=== PATIENT | male | born 1945 | race Caucasian/White ===

== ENCOUNTER → 2018-11-01 | Outpatient (CLI) | payer BC, MEDICARE ==
--- NOTE | 2018-11-01 12:03 | US ---
EXAMINATION TYPE: US duplex aorta DATE OF EXAM: 11/01/2018 COMPARISON: NONE CLINICAL HISTORY: 73-year-old male Z13.9Encounter for screening, unspecified. TECHNIQUE: Multiple sonographic images of the abdominal aorta are obtained. FINDINGS: EXAM MEASUREMENTS: Abdominal Aorta: Proximal: 2.2cm Mid: 1.9cm Distal: 1.6cm Bifurcation: Rt: 1.2cm Lt: 1.3cm IMPRESSION: No sonographic evidence for AAA.
== END | disposition home or self-care (01) ==
LOC: RADUSWWP 09:04
PROVIDERS: ATTEND Family Medicine
DX: Z13.9 Encounter for screening, unspecified (principal)
CPT/HCPCS: 93979

== ENCOUNTER → 2019-08-04 | Day surgery (SDC) | payer MEDICARE ==
[~2019-08-04] MED LIST: ALPRAZolam 0.25 MG TAB PO PRN; ALPRAZolam 0.5 MG TAB PO PRN; ASPIRIN 325 MG TAB PO STA; ATORVASTATIN 80 MG TAB PO STA; IOPAMIDOL-370 125ML BTL INJ ONE; IV FLUID CONTINUATION 100 ML IV ONE; LIDOCAINE 1% INJ 10MG/ML (20 ML MDV) SQ ONE; METOPROLOL SUCCINATE (ER) 25 MG TAB.ER.24H PO SCH; MIDAZOLAM 2 MG/2 ML VIAL IVP ONE; NITROGLYCERIN SL TABS 0.4 MG TAB SUBLINGUAL PRN; RX INFO: IV CONTRAST WAS GIVEN 1 EACH MISC MISCELLANE PRN; SODIUM CHLORIDE 0.9% 1,000 ML in EMPTY BAG 1 BAG IV ONE; fentaNYL (PF) 50 MCG/ML 2 ML AMP IVP ONE
--- NOTE | 2019-08-04 10:54 | ECHOF ---
Referral Reason:pre-op MEASUREMENTS -------- HEIGHT: 177.8 cm WEIGHT: 76.2 kg BP: RVIDd: 4.0 cm (< 3.3) IVSd: 1.3 cm (0.6 - 1.1) LVIDd: 3.6 cm (3.9 - 5.3) LVPWd: 1.3 cm (0.6 - 1.1) IVSs: 1.3 cm LVIDs: 2.6 cm LVPWs: 1.7 cm LAESV Index (A-L): 26.75 ml/m Ao Diam: 3.3 cm (2.0 - 3.7) AV Cusp: 1.5 cm (1.5 - 2.6) LA Diam: 2.6 cm (2.7 - 3.8) MV E Jenaro: 0.90 m/s MV DecT: 145 ms MV A Jenaro: 0.96 m/s MV E/A Ratio: 0.93 RAP: 5.00 mmHg RVSP: 25.79 mmHg FINDINGS -------- Sinus rhythm. This was a technically adequate study. The left ventricular size is normal. There is mild concentric left ventricular hypertrophy. Overa ll left ventricular systolic function is low-normal with, an EF between 50 - 55 %. The diastolic fi lling pattern is normal for the age of the patient 11.91. The right ventricle is mildly enlarged. Normal LA size by volume 22+/-6 ml/m2. The right atrial size is normal. Interatrial and interventricular septum intact. The aortic valve is trileaflet and appears structurally normal. There is mild to moderate aortic va lve sclerosis. Trace amount of aortic regurgitation. There is no evidence of aortic stenosis. Mild mitral annular calcification present. Mild mitral regurgitation is present. Mild tricuspid regurgitation present. There is no evidence of pulmonary hypertension. The right v entricular systolic pressure, as measured by Doppler, is 25.79mmHg. There is no pulmonic regurgitation present. The aortic root size is normal. IVC Not well visulized. There is no pericardial effusion. CONCLUSIONS -------- 1. Sinus rhythm. 2. This was a technically adequate study. 3. The left ventricular size is normal. 4. There is mild concentric left ventricular hypertrophy. 5. Overall left ventricular systolic function is low-normal with, an EF between 50 - 55 %. 6. The diastolic filling pattern is normal for the age of the patient 11.91 7. The right ventricle is mildly enlarged. 8. Normal LA size by volume 22+/-6 ml/m2. 9. The right atrial size is normal. 10. Interatrial and interventricular septum intact. 11. The aortic valve is trileaflet and appears structurally normal. 12. There is mild to moderate aortic valve sclerosis. 13. Trace amount of aortic regurgitation. 14. There is no evidence of aortic stenosis. 15. Mild mitral annular calcification present. 16. Mild mitral regurgitation is present. 17. Mild tricuspid regurgitation present. 18. There is no evidence of pulmonary hypertension. 19. The right ventricular systolic pressure, as measured by Doppler, is 25.79mmHg. 20. There is no pulmonic regurgitation present. 21. The aortic root size is normal. 22. IVC Not well visulized. 23. There is no pericardial effusion. CLINICAL PRODUCT MANAGER: Tianna Hardwick RDCS
[2019-08-04 12:40] VITALS: RESP 16
--- NOTE | 2019-08-04 12:45 | ECHOS ---
STRESS ECHOCARDIOGRAM INDICATIONS: Preoperative cardiac evaluation MEDICATIONS: Cholesterol medications, allopurinol. BASELINE HEART RATE: 63 BASELINE BLOOD PRESSURE: 141/57 MAXIMUM HEART RATE: 193 MAXIMUM BLOOD PRESSURE: 211/107 85% MPHR: 125 100% MPHR: 147 METS: 4.0 MAXIMUM STAGE REACHED: 2 TOTAL EXERCISE TIME: 3:37 CLINICAL INFORMATION: Baseline EKG shows sinus rhythm, Q-waves in the inferior leads, normal axis, normal intervals. Patient exercised on Sean protocol for a total of 3.5 minutes achieving 4 METS 100% of predicted maximal heart rate and at this level of activity became extremely short of breath had frequent ectopy including triplets, a run of SVT and mm ST-segment depression in the inferolateral leads. Baseline echo shows normal left ventricular size, wall motion and systolic function. Postexercise there is hypokinesis involving the apex with dilatation of the cavity. CONCLUSION: 1. Extremely poor exercise tolerance. 2. Cardiac arrhythmia in the form of SVT and complex ventricular ectopy with exercise. 3. Abnormal stress test by EKG criteria. 4. Abnormal stress echo. MMODL / IJN: [id number] /
--- NOTE | 2019-08-04 13:56 | CONS ---
CONSULTATION Mr. Patel is a 73-year-old gentleman who came to the hospital for a stress test. He was to undergo removal of a cyst over his right shoulder by an orthopedic surgeon from [facility] and was sent here for preop cardiac evaluation because of an abnormal EKG. Patient walked on the treadmill for about 3 minutes, became short of breath, had runs of SVT, nonsustained VT and had exercise-induced wall motion abnormality involving the apex. Due to his symptomatology and the EKG changes and ischemia noted on the stress test, I evaluated the patient and advised him to undergo cardiac catheterization. He has a who is disabled and is dependent on him at home. His daughter was with him and the plan is to perform a heart catheterization and if necessary do revascularization so that the patient can proceed with his surgery in the near future. Patient denies chest pain, shortness of breath, but his physical activity is somewhat limited. There is history of dyslipidemia. He is currently on a statin. FAMILY HISTORY: Negative for premature coronary artery disease. SOCIAL HISTORY: Negative for current smoking, EtOH abuse, or drug abuse. REVIEW OF SYSTEMS: HEENT: Unremarkable. CARDIAC: As described above. RESPIRATORY: Negative. GI: Negative. GENITOURINARY: Negative. ALLERGY/IMMUNOLOGY: Negative. SKIN: Negative. MUSCULOSKELETAL: Significant for cyst over right shoulder. PSYCHOSOCIAL: Negative. ENDOCRINE: Negative. DERM: Negative. CONSTITUTIONAL: Negative. ONCOLOGICAL: Negative. Rest of the system review is not relevant. PHYSICAL EXAM: Comfortable at rest. Vital signs are stable. There is no jugular venous distention. Carotid upstroke is normal. There is no bruit. Chest exam reveals good air entry bilaterally. Heart exam reveals first and second heart sounds. No gallop. No murmur. No rub. Abdomen is soft, nontender. Exam of extremities did not reveal any edema. Peripheral pulses are palpable. ASSESSMENT: 1. Abnormal stress test. 2. Dyslipidemia. PLAN: I am concerned, patient has a strongly abnormal stress echo with extremely poor exercise tolerance, cardiac arrhythmia at a very limited activity and in a large area of ischemia in LAD distribution. Due to this, I am advising the patient to undergo cardiac catheterization. He understands risks, benefits and alternatives. I have a CBC from yesterday that shows a hemoglobin of 11.8, platelet count is 300. I spoke to Dr. Zurdo Vance with his primary care physician. Patient had lytes and creatinine done through his office in June and his creatinine was less than 1 at that time. MMODL / IJN: [id number] /
[2019-08-04 16:53] VITALS: BP 155/82; PULSE 62
--- NOTE | 2019-08-05 11:56 | CC ---
CARDIAC CATHETERIZATION REPORT DATE OF PROCEDURE: 08/04/2019. INDICATION: Abnormal stress echo. This is a 72-year-old gentleman that I met in stress testing area when he came for a stress echo for preop cardiac evaluation. The patient exercised on treadmill for 3 minutes and became extremely short of breath, had runs of frequent PVCs, SVT, had EKG changes and wall motion abnormality involving the LAD distribution. Due to this, I advised the patient to undergo cardiac catheterization as I was concerned about significant obstructive coronary artery disease. The patient was explained of risks, benefits and alternatives understood and accepted. PROCEDURE NOTE: After obtaining informed consent, left heart catheterization and coronary angiogram were performed via the right femoral artery using standard Camilla catheters. The patient tolerated the procedure well without any obvious immediate complications. A femoral angiogram was performed and Angio-Seal will be deployed for hemostasis. Patient received moderate conscious sedation. Total sedation time was 16 minutes. FINDINGS: HEMODYNAMICS: Left ventricular end-diastolic pressure is 12-14 mm. There is no significant gradient across the aortic valve. LEFT VENTRICULOGRAM: Ventriculogram is not performed. ANGIOGRAPHIC DATA: LEFT MAIN CORONARY ARTERY: Left main coronary artery appears calcified but is free of significant stenosis. Divides into left anterior descending coronary artery and circumflex coronary artery. LEFT ANTERIOR DESCENDING CORONARY ARTERY: LAD does not reach all the way to the apex of the heart. There is mild is calcification of the left main and the LAD with mild to moderate diffuse disease but no focal hemodynamically significant lesions. CIRCUMFLEX CORONARY ARTERY: Circumflex coronary artery is a nondominant vessel and is free of significant stenosis. RIGHT CORONARY ARTERY: Right coronary artery is a large dominant vessel, appears calcified with a mild atherosclerotic plaque. I do not see any focal hemodynamically significant lesions. CONCLUSION: Mild to moderate nonobstructive coronary artery disease. PLAN: I reviewed angiographic data with the patient. The patient will be treated with aspirin, beta blockers and statins. The stress echo abnormality could be related to the SVT that the patient had. The patient can proceed with surgery on his right shoulder. MMODL / IJN: [id number] /
--- NOTE | 2019-08-05 12:47 | LTR ---
DATE OF SERVICE: 08/05/2019 Dear Zurdo, I performed cardiac catheterization on Emerson Patel. A detailed catheterization note is enclosed for your records. While the patient's stress echo was abnormal, the cardiac catheterization did not reveal significant focal obstructive CAD and patient did not require any angioplasty or stent. His management is going to be in the form of medical therapy and he can safely proceed with the surgery for the cyst on his right shoulder. Thank you for giving me the privilege to participate in the care of this pleasant gentleman. Sincerely, MMJOSEL / IJN: [id number] /
== END | disposition home or self-care (01) ==
LOC: EDSTATUS 08:45 → RADNMMAIN 08:46 → CATHCVL 08:46
PROVIDERS: ATTEND Family Medicine
DX: I49.9 Cardiac arrhythmia, unspecified (principal); I47.1 Supraventricular tachycardia; R94.31 Abnormal electrocardiogram [ECG] [EKG]
CPT/HCPCS: 93351; J2250; J2001; J3010; Q9967; 93306; 93458

== ENCOUNTER → 2020-08-29 | Outpatient (CLI) | payer MEDICARE ==
--- NOTE | 2020-08-29 15:17 | XR ---
"EXAMINATION TYPE: XR chest 2V DATE OF EXAM: 08/29/2020 COMPARISON: NONE HISTORY: COPD and shortness of breath TECHNIQUE: Frontal and lateral views of the chest are obtained. FINDINGS: There is no focal air space opacity, pleural effusion, or pneumothorax seen. The cardiac silhouette size is within normal limits. Interstitium is somewhat increased. Aorta is dense. Right s houlder is high riding, there is thoracic spondylosis. The osseous structures are intact. IMPRESSION: There is underlying interstitial changes within the lungs. Correlate to exclude intersti tial edema. Probable chronic right rotator cuff tear A Yellow level critical message alert has been initiated for Zurdo Vance MD via the [employer] 36 0 | Critical Results System on 08/29/2020 3:15 PM. This message alert has been sent to Zurdo Vance MD via the preferences provided by the clinician for the receipt of Radiology Critical Findings. [place] ssage ID [id number]."
== END | disposition home or self-care (01) ==
LOC: RADXRMAIN 08:52
PROVIDERS: ATTEND Family Medicine
DX: J84.9 Interstitial pulmonary disease, unspecified (principal)
CPT/HCPCS: 71046

== ENCOUNTER → 2020-09-02 | Outpatient (CLI) | payer MEDICARE ==
--- NOTE | 2020-09-02 12:45 | XR ---
EXAMINATION TYPE: XR chest 2V DATE OF EXAM: 09/02/2020 COMPARISON: 08/29/2020 TECHNIQUE: PA and lateral views submitted. HISTORY: Difficulty breathing FINDINGS: The lungs are clear and there is no pneumothorax, pleural effusion, or focal pneumonia. Hypertrophi c and degenerative change spine. Arthropathy of the shoulders. Mild hyperinflation. Interstitium coar sened. IMPRESSION: 1. Correlate for bronchitis or interstitial pneumonitis. Findings appear to be slightly improved from prior exam..
[2020-09-02 14:16] LABS: Basophils # (A) 0.1 k/uL (0-0.2); Basophils % (A) 1 %; Eosinophils # (A) 0.5 k/uL (0-0.7); Eosinophils % (A) 4 %; HCT 35.3 % (39.0-53.0); HGB 11.9 gm/dL (13.0-17.5); Lymphocytes % (A) 14 %; MCHC 33.7 g/dL (31.0-37.0); MCV 97.8 fL (80.0-100.0); Mean Platelet Volume 6.5; Monocytes # (A) 1.2 k/uL (0-1.0); Monocytes % (A) 8 %; Neutrophils % (A) 71 %; Platelet Count 383 k/uL (150-450); RBC 3.61 m/uL (4.30-5.90); RDW 12.3 % (11.5-15.5)
[2020-09-02 14:38] LABS: ALT 17 U/L (4-49); AST 29 U/L (17-59); African American GFR (CKD) >90 (>60 ml/min/1.73 sqM); Albumin 3.4 g/dL (3.5-5.0); Albumin/Globulin Ratio 0.8; Alkaline Phosphatase 90 U/L (38-126); Anion Gap 6 mmol/L; Blood Urea Nitrogen 12 mg/dL (9-20); C Reactive Protein 79.9 mg/L (<10.0); Calcium 9.1 mg/dL (8.4-10.2); Carbon Dioxide 29 mmol/L (22-30); Chloride 101 mmol/L (98-107); Globulin 4.2 g/dL; Glucose 82 mg/dL (74-99); Non-African American GFR(CKD) >90 (>60 ml/min/1.73 sqM); Potassium 3.1 mmol/L (3.5-5.1); Sodium 136 mmol/L (137-145); Total Bilirubin 0.5 mg/dL (0.2-1.3); Total Protein 7.6 g/dL (6.3-8.2)
[2020-09-02 16:29] LABS: Erythrocyte Sedimentation Rate 100 mm/hr (0-15)
== END | disposition home or self-care (01) ==
LOC: LABWHC1 12:13
PROVIDERS: ATTEND Nurse Practitioner
DX: R06.09 Other forms of dyspnea (principal)
CPT/HCPCS: 36415; 71046; 80053; 83880; 84145; 85025; 85652; 86140

== ENCOUNTER → 2020-09-03 | Outpatient (CLI) | payer MEDICARE | END | disposition home or self-care (01) | LOC: LABWHC1 12:56 | PROVIDERS: ATTEND Nurse Practitioner | DX: Z20.828 Contact with and (suspected) exposure to other viral communicable diseases (principal) | CPT/HCPCS: U0003; C9803 ==

== ENCOUNTER 2020-09-04 10:38 | Emergency (ER) | payer MEDICARE ==
--- NOTE | 2020-09-04 11:09 | ED ---
General Adult HPI - General Chief complaint: Shortness of Breath Stated complaint: SOB Time Seen by Provider: 09/04/20 10:50 Source: patient Mode of arrival: ambulatory Limitations: no limitations - History of Present Illness Initial comments: Dictation was produced using [employer] dictation software. please excuse any grammatical, word or spelling errors. This patient was cared for during a federal and state declared state of emergency secondary to Covid 19 Chief Complaint: 75-year-old male with no lung or cardiac comorbidities presents with dyspnea failed outpatient treatment. History of Present Illness: His 75-year-old male. He was sent in by the nurse practitioner from his PCPs office for failed outpatient care. He has been having continuous exertional dyspnea since mid-June. I did receive a call from nurse practitioner, Johnny Medrano stating that he was sending his patient over here. There is concern of COPD. Daughter is at bedside reports that patient does not have a formal diagnosis of COPD. Patient does however have an abnormal chest x-ray suggestive of COPD. Patient had blood work drawn at PCPs office. The patient had elevated CRP, ESR and slight elevation of leukocytosis. Patient has been having cough, poor appetite. Patient does not feel like his symptoms severely worsen over the last couple days. One year ago patient had a cardiac stress tests. He also had a cardiac cath which did not reveal any coronary artery disease according to daughter. He denies any symptoms get worse when he lies flat. The ROS documented in this emergency department record has been reviewed and confirmed by me. Those systems with pertinent positive or negative responses have been documented in the HPI. All other systems are other negative and/or noncontributory. PHYSICAL EXAM: General Impression: Alert and oriented x3, not in acute distress HEENT: Normocephalic atraumatic, extra-ocular movements intact, pupils equal and reactive to light bilaterally, mucous membranes moist. Cardiovascular: Heart regular rate and rhythm Chest: Able to complete full sentences, no retractions, no tachypnea, diffuse lung crackles on auscultation Abdomen: abdomen soft, non-tender, non-distended, no organomegaly Musculoskeletal: Pulses present and equal in all extremities, no peripheral edema Motor: no focal deficits noted Neurological: CN II-XII grossly intact, no focal motor or sensory deficits noted Skin: Intact with no visualized rashes Psych: Normal affect and mood ED course: 75-year-old male presents to the emergency department after being sent by nurse practitioner from PCPs office for chronic shortness of breath vital signs upon arrival are within acceptable limits. Patient does not appear dyspneic at bedside. He does not have any pitting edema. Chart review was performed. In July 2019 patient had a cardiac cath which showed mild to moderate nonobstructive coronary artery disease Laboratory evaluation obtained. Mild leukocytosis of 13.4, hemoglobin stable 0.3, coag panel is negative. Potassium is 3.0. Rest of labs unremarkable. Chest x-ray shows diffuse bilateral reticular nodular edema and or atypical infiltrates. Patient has normal brain natruretic peptide. This appears to be not significantly different results were discussed with patient and patient's daughter. Patient will be prescribed azithromycin pack and given referral to pulmonology. EKG interpretation: Ventricular rate 70, normal sinus rhythm,. Interval 180, QRS 90, QTc 451. No [place] prolongation, no QTC prolongation, no ST or T-wave changes noted. Overall, this EKG is unremarkable - Related Data Home Medications Medication Instructions Recorded Confirmed ALPRAZolam [Xanax] 0.5 mg PO BID PRN 09/04/20 09/04/20 ALPRAZolam [Xanax] 0.5 mg PO HS 09/04/20 09/04/20 Allopurinol [Zyloprim] 300 mg PO HS 09/04/20 09/04/20 Amoxic-Pot Clav 875-125Mg 1 tab PO Q12HR 09/04/20 09/04/20 [Augmentin 875-125] Ascorbic Acid [Vitamin C] 250 mg PO BID 09/04/20 09/04/20 Cholecalciferol [Vitamin D3 (25 2,000 unit PO DAILY 09/04/20 09/04/20 Mcg = 1000 Iu)] Cranberry Fruit Concentrate [Azo 250 mg PO DAILY 09/04/20 09/04/20 Cranberry] Fish Oil/Dha/Epa [Fish Oil 1,200 1 cap PO DAILY 09/04/20 09/04/20 mg Fish Oil] lisinopriL [Zestril] 20 mg PO DAILY 09/04/20 09/04/20 traZODone HCL [Desyrel] 50 mg PO HS 09/04/20 09/04/20 Previous Rx's Medication Instructions Recorded Aspirin 81 mg PO DAILY chew 08/04/19 Metoprolol Succinate (ER) [Toprol 25 mg PO DAILY #90 tab.er.24h 08/04/19 XL] Allergies Allergy/AdvReac Type Severity Reaction Status Date / Time No Known Allergies Allergy Verified 09/04/20 12:03 Review of Systems ROS Statement: Those systems with pertinent positive or pertinent negative responses have been documented in the HPI. ROS Other: All systems not noted in ROS Statement are negative. Past Medical History Past Medical History: Hypertension Additional Past Medical History / Comment(s): gout, copd per xray Additional Past Surgical History / Comment(s): cyst Past Psychological History: No Psychological Hx Reported Smoking Status: Former smoker Past Alcohol Use History: Occasional Past Drug Use History: None Reported General Exam Limitations: no limitations Course Vital Signs 09/04/20 09/04/20 09/04/20 10:40 11:30 11:40 Temperature 98.6 F Pulse Rate 79 67 65 Respiratory 18 18 17 Rate Blood Pressure 148/89 147/87 147/87 O2 Sat by Pulse 97 96 96 Oximetry 09/04/20 09/04/20 09/04/20 11:50 12:00 12:10 Temperature Pulse Rate 70 72 70 Respiratory 24 20 17 Rate Blood Pressure 147/87 147/87 138/83 O2 Sat by Pulse 94 L 94 L 93 L Oximetry 09/04/20 09/04/20 12:20 12:30 Temperature Pulse Rate 71 69 Respiratory 16 16 Rate Blood Pressure 138/83 138/83 O2 Sat by Pulse 93 L 93 L Oximetry Medical Decision Making - Lab Data Result diagrams: 09/04/20 11:22 09/04/20 11:22 Lab Results 09/04/20 09/04/20 09/04/20 Range/Units 11:22 11:22 11:22 WBC 13.4 H (3.8-10.6) k/uL RBC 3.74 L (4.30-5.90) m/uL Hgb 12.3 L (13.0-17.5) gm/dL Hct 36.2 L (39.0-53.0) % MCV 96.6 (80.0-100.0) fL MCH 32.9 (25.0-35.0) pg MCHC 34.1 (31.0-37.0) g/dL RDW 12.2 (11.5-15.5) % Plt Count 419 (150-450) k/uL MPV 6.5 Neutrophils % 76 % Lymphocytes % 13 % Monocytes % 7 % Eosinophils % 2 % Basophils % 1 % Neutrophils # 10.2 H (1.3-7.7) k/uL Lymphocytes # 1.8 (1.0-4.8) k/uL Monocytes # 0.9 (0-1.0) k/uL Eosinophils # 0.3 (0-0.7) k/uL Basophils # 0.1 (0-0.2) k/uL PT 12.0 (9.0-12.0) sec INR 1.2 H (<1.2) APTT 25.5 (22.0-30.0) sec Sodium 135 L (137-145) mmol/L Potassium 3.0 L (3.5-5.1) mmol/L Chloride 101 (98-107) mmol/L Carbon Dioxide 28 (22-30) mmol/L Anion Gap 6 mmol/L BUN 8 L (9-20) mg/dL Creatinine 0.66 (0.66-1.25) mg/dL Est GFR (CKD-EPI)AfAm >90 (>60 ml/min/1.73 sqM) Est GFR (CKD-EPI)NonAf >90 (>60 ml/min/1.73 sqM) Glucose 89 (74-99) mg/dL Plasma Lactic Acid Zeb (0.7-2.0) mmol/L Calcium 8.9 (8.4-10.2) mg/dL Total Bilirubin 0.8 (0.2-1.3) mg/dL AST 30 (17-59) U/L ALT 18 (4-49) U/L Alkaline Phosphatase 89 (38-126) U/L Troponin I (0.000-0.034) ng/mL NT-Pro-B Natriuret Pep pg/mL Total Protein 7.6 (6.3-8.2) g/dL Albumin 3.4 L (3.5-5.0) g/dL 09/04/20 09/04/20 09/04/20 Range/Units 11:22 11:22 11:22 WBC (3.8-10.6) k/uL RBC (4.30-5.90) m/uL Hgb (13.0-17.5) gm/dL Hct (39.0-53.0) % MCV (80.0-100.0) fL MCH (25.0-35.0) pg MCHC (31.0-37.0) g/dL RDW (11.5-15.5) % Plt Count (150-450) k/uL MPV Neutrophils % % Lymphocytes % % Monocytes % % Eosinophils % % Basophils % % Neutrophils # (1.3-7.7) k/uL Lymphocytes # (1.0-4.8) k/uL Monocytes # (0-1.0) k/uL Eosinophils # (0-0.7) k/uL Basophils # (0-0.2) k/uL PT (9.0-12.0) sec INR (<1.2) APTT (22.0-30.0) sec Sodium (137-145) mmol/L Potassium (3.5-5.1) mmol/L Chloride (98-107) mmol/L Carbon Dioxide (22-30) mmol/L Anion Gap mmol/L BUN (9-20) mg/dL Creatinine (0.66-1.25) mg/dL Est GFR (CKD-EPI)AfAm (>60 ml/min/1.73 sqM) Est GFR (CKD-EPI)NonAf (>60 ml/min/1.73 sqM) Glucose (74-99) mg/dL Plasma Lactic Acid Zeb 1.3 (0.7-2.0) mmol/L Calcium (8.4-10.2) mg/dL Total Bilirubin (0.2-1.3) mg/dL AST (17-59) U/L ALT (4-49) U/L Alkaline Phosphatase (38-126) U/L Troponin I 0.014 (0.000-0.034) ng/mL NT-Pro-B Natriuret Pep 400 pg/mL Total Protein (6.3-8.2) g/dL Albumin (3.5-5.0) g/dL Disposition Clinical Impression: Dyspnea Disposition: HOME SELF-CARE Condition: Good Instructions (If sedation given, give patient instructions): Dyspnea (ED) Is patient prescribed a controlled substance at d/c from ED?: No Referrals: Afia Lopez MD [STAFF PHYSICIAN] - 1-2 days Time of Disposition: 12:46
[2020-09-04 11:38] LABS: Basophils # (A) 0.1 k/uL (0-0.2); Basophils % (A) 1 %; Eosinophils # (A) 0.3 k/uL (0-0.7); Eosinophils % (A) 2 %; HCT 36.2 % (39.0-53.0); HGB 12.3 gm/dL (13.0-17.5); Lymphocytes # (A) 1.8 k/uL (1.0-4.8); Lymphocytes % (A) 13 %; MCH 32.9 pg (25.0-35.0); MCHC 34.1 g/dL (31.0-37.0); MCV 96.6 fL (80.0-100.0); Mean Platelet Volume 6.5; Monocytes # (A) 0.9 k/uL (0-1.0); Monocytes % (A) 7 %; Neutrophils # (A) 10.2 k/uL (1.3-7.7); Neutrophils % (A) 76 %; Platelet Count 419 k/uL (150-450); RBC 3.74 m/uL (4.30-5.90); RDW 12.2 % (11.5-15.5); WBC 13.4 k/uL (3.8-10.6)
--- NOTE | 2020-09-04 11:43 | XR ---
EXAMINATION TYPE: XR chest 2V DATE OF EXAM: 09/04/2020 COMPARISON: Chest x-ray 2 days ago and 6 days ago. HISTORY: Difficulty breathing. Abnormal physical exam. TECHNIQUE: Frontal and lateral views of the chest are obtained. FINDINGS: Faint reticular nodular increased opacities bilaterally remain present. No pleural effusio n or pneumothorax is seen bilaterally. The cardiac silhouette size remains within normal limits with atherosclerotic change in the aortic knob. Multilevel spurring in thoracic spine is redemonstrated. IMPRESSION: Diffuse bilateral reticulonodular edema and/or atypical infiltrates remain present. No s ignificant change or progression from recent prior studies.
[2020-09-04 11:44] LABS: ALT 18 U/L (4-49); AST 30 U/L (17-59); African American GFR (CKD) >90 (>60 ml/min/1.73 sqM); Albumin 3.4 g/dL (3.5-5.0); Alkaline Phosphatase 89 U/L (38-126); Anion Gap 6 mmol/L; Blood Urea Nitrogen 8 mg/dL (9-20); Calcium 8.9 mg/dL (8.4-10.2); Carbon Dioxide 28 mmol/L (22-30); Chloride 101 mmol/L (98-107); Glucose 89 mg/dL (74-99); INR 1.2 (<1.2); Non-African American GFR(CKD) >90 (>60 ml/min/1.73 sqM); Partial Thromboplastin Time 25.5 sec (22.0-30.0); Sodium 135 mmol/L (137-145); Total Bilirubin 0.8 mg/dL (0.2-1.3); Total Protein 7.6 g/dL (6.3-8.2)
[2020-09-04 12:32] VITALS: BP 138/83; PULSE 69
[2020-09-04 12:33] VITALS: RESP 16
--- NOTE | 2020-09-04 12:47 | ED ---
Medical Decision Making - Lab Data Result diagrams: 09/04/20 11:22 09/04/20 11:22 Lab Results 09/04/20 09/04/20 09/04/20 Range/Units 11:22 11:22 11:22 WBC 13.4 H (3.8-10.6) k/uL RBC 3.74 L (4.30-5.90) m/uL Hgb 12.3 L (13.0-17.5) gm/dL Hct 36.2 L (39.0-53.0) % MCV 96.6 (80.0-100.0) fL MCH 32.9 (25.0-35.0) pg MCHC 34.1 (31.0-37.0) g/dL RDW 12.2 (11.5-15.5) % Plt Count 419 (150-450) k/uL MPV 6.5 Neutrophils % 76 % Lymphocytes % 13 % Monocytes % 7 % Eosinophils % 2 % Basophils % 1 % Neutrophils # 10.2 H (1.3-7.7) k/uL Lymphocytes # 1.8 (1.0-4.8) k/uL Monocytes # 0.9 (0-1.0) k/uL Eosinophils # 0.3 (0-0.7) k/uL Basophils # 0.1 (0-0.2) k/uL PT 12.0 (9.0-12.0) sec INR 1.2 H (<1.2) APTT 25.5 (22.0-30.0) sec Sodium 135 L (137-145) mmol/L Potassium 3.0 L (3.5-5.1) mmol/L Chloride 101 (98-107) mmol/L Carbon Dioxide 28 (22-30) mmol/L Anion Gap 6 mmol/L BUN 8 L (9-20) mg/dL Creatinine 0.66 (0.66-1.25) mg/dL Est GFR (CKD-EPI)AfAm >90 (>60 ml/min/1.73 sqM) Est GFR (CKD-EPI)NonAf >90 (>60 ml/min/1.73 sqM) Glucose 89 (74-99) mg/dL Plasma Lactic Acid Zeb (0.7-2.0) mmol/L Calcium 8.9 (8.4-10.2) mg/dL Total Bilirubin 0.8 (0.2-1.3) mg/dL AST 30 (17-59) U/L ALT 18 (4-49) U/L Alkaline Phosphatase 89 (38-126) U/L Troponin I (0.000-0.034) ng/mL NT-Pro-B Natriuret Pep pg/mL Total Protein 7.6 (6.3-8.2) g/dL Albumin 3.4 L (3.5-5.0) g/dL 09/04/20 09/04/20 09/04/20 Range/Units 11:22 11:22 11:22 WBC (3.8-10.6) k/uL RBC (4.30-5.90) m/uL Hgb (13.0-17.5) gm/dL Hct (39.0-53.0) % MCV (80.0-100.0) fL MCH (25.0-35.0) pg MCHC (31.0-37.0) g/dL RDW (11.5-15.5) % Plt Count (150-450) k/uL MPV Neutrophils % % Lymphocytes % % Monocytes % % Eosinophils % % Basophils % % Neutrophils # (1.3-7.7) k/uL Lymphocytes # (1.0-4.8) k/uL Monocytes # (0-1.0) k/uL Eosinophils # (0-0.7) k/uL Basophils # (0-0.2) k/uL PT (9.0-12.0) sec INR (<1.2) APTT (22.0-30.0) sec Sodium (137-145) mmol/L Potassium (3.5-5.1) mmol/L Chloride (98-107) mmol/L Carbon Dioxide (22-30) mmol/L Anion Gap mmol/L BUN (9-20) mg/dL Creatinine (0.66-1.25) mg/dL Est GFR (CKD-EPI)AfAm (>60 ml/min/1.73 sqM) Est GFR (CKD-EPI)NonAf (>60 ml/min/1.73 sqM) Glucose (74-99) mg/dL Plasma Lactic Acid Zeb 1.3 (0.7-2.0) mmol/L Calcium (8.4-10.2) mg/dL Total Bilirubin (0.2-1.3) mg/dL AST (17-59) U/L ALT (4-49) U/L Alkaline Phosphatase (38-126) U/L Troponin I 0.014 (0.000-0.034) ng/mL NT-Pro-B Natriuret Pep 400 pg/mL Total Protein (6.3-8.2) g/dL Albumin (3.5-5.0) g/dL Disposition Clinical Impression: Dyspnea Disposition: HOME SELF-CARE Condition: Good Instructions (If sedation given, give patient instructions): Dyspnea (ED) Prescriptions: Azithromycin [Zithromax Z-pack (6 tabs)] 0 mg PO DIRECTED 5 Days #6 tab Is patient prescribed a controlled substance at d/c from ED?: No If prescribed controlled substance>3 days was MAPS reviewed?: Prescribed <3 Days Referrals: Afia Lopez MD [STAFF PHYSICIAN] - 1-2 days Time of Disposition: 12:47
[2020-09-04 13:04] VITALS: TEMP 98.2
== END 2020-09-04 13:03 | disposition home or self-care (01) ==
LOC: EC 10:38
DX: R06.00 Dyspnea, unspecified (principal); I10 Essential (primary) hypertension; M10.9 Gout, unspecified; I25.10 Atherosclerotic heart disease of native coronary artery without angina pectoris; D72.829 Elevated white blood cell count, unspecified; Z79.899 Other long term (current) drug therapy; Z87.891 Personal history of nicotine dependence
CPT/HCPCS: 36415; 71046; 80053; 83605; 83880; 84484; 85025; 85610; 85730; 93005; 99285

== ENCOUNTER → 2020-10-18 | Outpatient (CLI) | payer MEDICARE ==
--- NOTE | 2020-10-18 11:09 | XR ---
EXAMINATION TYPE: XR chest 2V DATE OF EXAM: 10/18/2020 COMPARISON: 09/04/2020 TECHNIQUE: PA and lateral views submitted. HISTORY: Cough FINDINGS: The lungs are clear and there is no pneumothorax, pleural effusion, or focal pneumonia. Hypertrophi c change of the spine. Heart size normal. Curvature of the spine. No overt failure. Arthropathy of th e shoulders. IMPRESSION: 1. No acute process.
== END | disposition home or self-care (01) ==
LOC: RADXRMAIN 10:35
PROVIDERS: ATTEND Family Medicine
DX: J18.9 Pneumonia, unspecified organism (principal)
CPT/HCPCS: 71046

== ENCOUNTER → 2020-11-20 | Outpatient (CLI) | payer MEDICARE | END | disposition home or self-care (01) | LOC: LABWHC1 10:48 | PROVIDERS: ATTEND Family Medicine | DX: Z20.822 Contact with and (suspected) exposure to COVID-19 (principal) | CPT/HCPCS: U0003; C9803 ==

== ENCOUNTER → 2023-01-12 | Outpatient (CLI) | payer MEDICARE ==
--- NOTE | 2023-01-12 18:40 | US ---
EXAMINATION TYPE: US carotid duplex BILAT DATE OF EXAM: 01/12/2023 COMPARISON: NONE CLINICAL INDICATION: Male, 77 years old with history of G45.9 TRANSIENT CEREBRAL ISCHEMIC ATTACK, UNS PECIF; TIA TECHNIQUE: Carotid duplex ultrasound examination. Indirect Doppler criteria was utilized. FINDINGS: EXAM MEASUREMENTS: RIGHT: Peak Systolic Velocity (PSV) cm/sec ----- Right CCA: 136 ----- Right ICA: 111 ----- Right ECA: 107 ICA/CCA ratio: 0.81 RIGHT: End Diastole cm/sec ----- Right CCA: 26.3 ----- Right ICA: 21.8 ----- Right ECA: 8 LEFT: Peak Systolic Velocity (PSV) cm/sec ----- Left CCA: 129 ----- Left ICA: 72.6 ----- Left ECA: 95.8 ICA/CCA ratio: 0.6 LEFT: End Diastole cm/sec ----- Left CCA: 26.4 ----- Left ICA: 14.7 ----- Left ECA: 8.51 VERTEBRALS (direction of flow): Right Vertebral: Antegrade Left Vertebral: Antegrade Rhythm: Normal [employer] OFF SHIFT NOTES: No significant stenosis seen Grayscale images: Mild atelectatic change at both bifurcations. IMPRESSION: No hemodynamically significant internal carotid artery stenosis on either side. Criteria for Assigning % of Stenosis / Diameter reduction (Estimation based on the indirect measurements of the internal carotid artery velocities (ICA PSV). 1. Normal (no stenosis)=ICA PSV < 125 cm/s: ratio < 2.0: ICA EDV<40 cm/s. 2. Less than 50% stenosis=ICA PSV < 125 cm/s: ratio < 2.0: ICA EDV<40 cm/s. 3. 50 to 69% stenosis=ICA PSV of 125 to 230 cm/s: ration 2.0 ? 4.0: ICA EDV 40-100 cm/s. 4. Greater than 70% stenosis to near occlusion= ICA PSV > 230 cm/s: ratio > 4.0: ICA EDV > 100 cm/s. 5. Near occlusion= ICA PSV velocities may be low or undetectable: variable ratio and ICA EDV. 6. Total occlusion=unable to detect flow.
== END | disposition home or self-care (01) ==
LOC: RADUSWWP 12:58
PROVIDERS: ATTEND Family Medicine
DX: G45.9 Transient cerebral ischemic attack, unspecified (principal)
CPT/HCPCS: 93880

== ENCOUNTER → 2023-01-12 | Outpatient (CLI) | payer MEDICARE ==
[2023-01-12 16:25] LABS: Basophils # (A) 0.12 X 10*3/uL (0.00-0.10); Basophils % (A) 1.3 %; Eosinophils # (A) 0.32 X 10*3/uL (0.04-0.35); Eosinophils % (A) 3.6 %; HCT 44.3 % (39.6-50.0); HGB 14.8 g/dL (13.0-17.0); Immature Grans, Automated 0.6 %; Lymphocytes # (A) 2.79 X 10*3/uL (0.90-5.00); Lymphocytes % (A) 31.3 %; MCH 32.5 pg (27.0-32.0); MCHC 33.4 g/dL (32.0-37.0); MCV 97.1 fL (80.0-97.0); Mean Platelet Volume 9.6 fL (9.5-12.2); NRBC Per 100 WBC 0 /100 WBCS (0.0-0.0); Neutrophils # (A) 4.82 X 10*3/uL (1.80-7.70); Neutrophils % (A) 54.2 %; Platelet Count 276 X 10*3/uL (140-440); RBC 4.56 X 10*6/uL (4.40-5.60); RDW 12.9 % (11.5-14.5)
[2023-01-12 16:44] LABS: ALT 33 U/L (10-49); AST 37 U/L (14-35); African American GFR (CKD) 91.9 (60.0-200.0); Albumin 4.2 g/dL (3.8-4.9); Albumin/Globulin Ratio 1.26 (1.60-3.17); Alkaline Phosphatase 95 U/L (41-126); Blood Urea Nitrogen 11.2 mg/dL (9.0-27.0); Calcium 9.7 mg/dL (8.7-10.3); Carbon Dioxide 23.7 mmol/L (20.0-27.5); Chloride 105 mmol/L (96-109); Chol/HDL Ratio 4.59 Ratio; Globulin 3.4 g/dL (1.6-3.3); Glucose 83 mg/dL (70-110); LDL Cholesterol,Calculated 152.1 mg/dL (0.0-131.0); Non-African American GFR(CKD) 79.3 (60.0-200.0); Potassium 4.3 mmol/L (3.5-5.5); Sodium 141 mmol/L (135-145); Total Protein 7.6 g/dL (6.2-8.2); Uric Acid 4.1 mg/dL (3.7-8.7)
== END | disposition home or self-care (01) ==
LOC: LABWHC1 09:35
PROVIDERS: ATTEND Family Medicine
DX: Z12.5 Encounter for screening for malignant neoplasm of prostate (principal); I10 Essential (primary) hypertension; M10.9 Gout, unspecified; E78.5 Hyperlipidemia, unspecified; G45.9 Transient cerebral ischemic attack, unspecified
CPT/HCPCS: 36415; 80053; 80061; 84153; 84443; 84550; 85025

== ENCOUNTER → 2023-02-04 | Outpatient (CLI) | payer MEDICARE ==
--- NOTE | 2023-02-05 12:49 | CA ---
Transthoracic Echo Report Name: Emerson Patel Age: 77 Gender: M : 1945 Exam Date: 02/04/2023 15:01 Exam Location: [facility] Ht (in): 70 Wt (lb): 205 Ordering Physician: Zurdo Vance MD Attending/Referring Phys: [id number], [facility] Department Chair Natalie Wasserman, [facility] Procedure CPT: Indications: R03.1 Cardiac Hx: Technical Quality: Fair Contrast 1: Total Dose (mL): Contrast 2: Total Dose (mL): MEASUREMENTS (Male / Female) Normal Values 2D ECHO LV Diastolic Diameter PLAX 4.5 cm 4.2 - 5.9 / 3.9 - 5.3 cm LV Systolic Diameter PLAX 3.9 cm IVS Diastolic Thickness 1.1 cm 0.6 - 1.0 / 0.6 - 0.9 cm LVPW Diastolic Thickness 0.9 cm 0.6 - 1.0 / 0.6 - 0.9 cm LV Relative Wall Thickness 0.4 RV Internal Dim ED PLAX 3.6 cm LA Systolic Diameter LX 3.9 cm 3.0 - 4.0 / 2.7 - 3.8 cm LV Diastolic Volume MOD BP 108.0 cm??? 67 - 155 / 56 - 104 cm??? LV Systolic Volume MOD BP 49.8 cm??? - 58 / 19 - 49 cm??? LV Ejection Fraction MOD BP 53.9 % >= 55 % LV Cardiac Index MOD BP 1720.1 cm???/min???m??? LV Diastolic Volume MOD 4C 105.3 cm??? LV Systolic Volume MOD 4C 42.9 cm??? LV Ejection Fraction MOD 4C 59.2 % LV Cardiac Index MOD 4C 1842.0 cm???/min???m??? LV Diastolic Length 4C 9.1 cm LV Systolic Length 4C 7.9 cm LV Diastolic Volume MOD 2C 108.4 cm??? LV Systolic Volume MOD 2C 52.2 cm??? LV Ejection Fraction MOD 2C 51.9 % LV Cardiac Index MOD 2C 1662.2 cm???/min???m??? LV Diastolic Length 2C 8.5 cm LV Systolic Length 2C 7.0 cm LA Volume 54.8 cm??? 18 - 58 / 22 - 52 cm??? M-MODE Aortic Root Diameter MM 3.4 cm MV E Point Septal Separation 1.2 cm AV Cusp Separation MM 1.0 cm DOPPLER AV Peak Velocity 237.7 cm/s AV Peak Gradient 22.6 mmHg AV Mean Velocity 154.1 cm/s AV Mean Gradient 11.0 mmHg AV Velocity Time Integral 52.2 cm LVOT Peak Velocity 90.6 cm/s LVOT Peak Gradient 3.3 mmHg MV Area PHT 2.4 cm??? Mitral E Point Velocity 74.4 cm/s Mitral A Point Velocity 97.0 cm/s Mitral E to A Ratio 0.8 MV Deceleration Time 316.2 ms MV E' Velocity 7.4 cm/s Mitral E to MV E' Ratio 10.1 FINDINGS Left Ventricle Left ventricular ejection fraction is estimated at50-55 %. Left ventricular cavity size normal. Mildly decreased left ventricular ejection fraction. Right Ventricle Mild right ventricular dilatation. Unable to estimate the right ventricular systolic pressure. Right Atrium Normal right atrial size. Left Atrium Normal left atrial size. Mitral Valve Structurally normal mitral valve. Trace to mild mitral regurgitation. Aortic Valve Moderate aortic valve sclerosis. Mild aortic stenosis with a peak gradient of 23 mmHg and a mean gradient of 11 mmHg. Tricuspid Valve Structurally normal tricuspid valve. No tricuspid regurgitation. Pulmonic Valve Structurally normal pulmonic valve. Trace pulmonic regurgitation. Pericardium No pericardial effusion. Normal pericardium. Aorta Normal size aortic root and proximal ascending aorta. CONCLUSIONS Low-normal left ventricle systolic function with EF at 50% Aortic sclerosis with mild aortic stenosis Previewed by: Dr. Paco Melendez MD (Electronically Signed) Final Date: 05 February 2023 12:48
== END | disposition home or self-care (01) ==
LOC: RADECHMAIN 14:54
PROVIDERS: ATTEND Family Medicine
DX: I35.0 Nonrheumatic aortic (valve) stenosis (principal); R03.1 Nonspecific low blood-pressure reading; I10 Essential (primary) hypertension
CPT/HCPCS: 93306

== ENCOUNTER → 2023-11-09 | Outpatient (CLI) | payer MEDICARE ==
[2023-11-09 16:32] LABS: HCT 43.9 % (39.6-50.0); HGB 14.6 g/dL (13.0-17.0); MCHC 33.3 g/dL (32.0-37.0); MCV 99.3 FL (80.0-97.0); NRBC Per 100 WBC 0 X 10*3/uL (0.00-0.01); Platelet Count 316 X 10*3/uL (140-440); RBC 4.42 X 10*6/uL (4.40-5.60); RDW 12.8 % (11.5-14.5)
[2023-11-09 16:33] LABS: Basophils % (A) 0.7 %; Eosinophils # (A) 0.33 X 10*3/uL (0.04-0.35); Eosinophils % (A) 2.3 %; Lymphocytes % (A) 20.8 %; Monocytes # (A) 1.23 X 10*3/uL (0.20-1.00); Monocytes % (A) 8.5 %; Neutrophils # (A) 9.65 X 10*3/uL (1.80-7.70); Neutrophils % (A) 67.1 %
[2023-11-09 16:40] LABS: ALT 24 U/L (10-49); AST 33 U/L (14-35); Albumin 4.1 g/dL (3.8-4.9); Albumin/Globulin Ratio 1.02 Ratio (1.60-3.17); Alkaline Phosphatase 110 U/L (41-126); Blood Urea Nitrogen 18.4 mg/dL (9.0-27.0); Calcium 10.2 mg/dL (8.7-10.3); Carbon Dioxide 24.1 mmol/L (21.6-31.8); Chloride 98 mmol/L (96-109); Glucose 92 mg/dL (70-110); LDL Cholesterol,Calculated 114.5 mg/dL (0.0-131.0); Potassium 4.2 mmol/L (3.5-5.5); Sodium 135 mmol/L (135-145); Total Bilirubin 0.5 mg/dL (0.3-1.2); Total Protein 8.1 g/dL (6.2-8.2); VLDL Calculation 19.04 mg/dL (5.00-40.00)
== END | disposition home or self-care (01) ==
LOC: LABWHC1 09:48
PROVIDERS: ATTEND Family Medicine
DX: E78.5 Hyperlipidemia, unspecified (principal)
CPT/HCPCS: 36415; 80053; 80061; 83036; 84443; 85025

== ENCOUNTER → 2023-11-17 | Outpatient (CLI) | payer MEDICARE ==
[2023-11-17 17:03] LABS: HCT 48.9 % (39.6-50.0); HGB 16.3 g/dL (13.0-17.0); MCH 32.9 pg (27.0-32.0); MCHC 33.3 g/dL (32.0-37.0); MCV 98.6 FL (80.0-97.0); NRBC Per 100 WBC 0 X 10*3/uL (0.00-0.01); Platelet Count 331 X 10*3/uL (140-440); RBC 4.96 X 10*6/uL (4.40-5.60); RDW 12.8 % (11.5-14.5); WBC 21.52 X 10*3/uL (4.50-10.00)
[2023-11-17 17:30] LABS: ALT 51 U/L (10-49); AST 49 U/L (14-35); Albumin 4.4 g/dL (3.8-4.9); Albumin/Globulin Ratio 1.07 Ratio (1.60-3.17); Alkaline Phosphatase 96 U/L (41-126); Blood Urea Nitrogen 28.2 mg/dL (9.0-27.0); Calcium 10.1 mg/dL (8.7-10.3); Carbon Dioxide 19.9 mmol/L (21.6-31.8); Chloride 103 mmol/L (96-109); Globulin 4.1 g/dL (1.6-3.3); Glucose 87 mg/dL (70-110); Potassium 4.3 mmol/L (3.5-5.5); Sodium 136 mmol/L (135-145); Total Bilirubin 0.8 mg/dL (0.3-1.2); Total Protein 8.5 g/dL (6.2-8.2)
[2023-11-17 17:34] LABS: Basophils # (A) 0.14 X 10*3/uL (0.00-0.10); Basophils % (A) 0.7 %; Eosinophils # (A) 0.11 X 10*3/uL (0.04-0.35); Eosinophils % (A) 0.5 %; Lymphocytes # (A) 3.34 X 10*3/uL (0.90-5.00); Lymphocytes % (A) 15.5 %; Monocytes # (A) 1.92 X 10*3/uL (0.20-1.00); Monocytes % (A) 8.9 %; Neutrophils # (A) 15.78 X 10*3/uL (1.80-7.70); Neutrophils % (A) 73.3 %; RBC Morphology Normal (Normal)
== END | disposition home or self-care (01) ==
LOC: LABWHC1 10:01
PROVIDERS: ATTEND Family Medicine
DX: N17.9 Acute kidney failure, unspecified (principal); D72.829 Elevated white blood cell count, unspecified
CPT/HCPCS: 36415; 80053; 85025

== ENCOUNTER → 2023-12-02 | Outpatient (CLI) | payer MEDICARE ==
[2023-12-02 14:50] LABS: ALT 34 U/L (10-49); AST 37 U/L (14-35); Albumin 4.1 g/dL (3.8-4.9); Albumin/Globulin Ratio 1.21 Ratio (1.60-3.17); Alkaline Phosphatase 99 U/L (41-126); BUN/Creat Ratio 14.69 Ratio (12.00-20.00); Blood Urea Nitrogen 19.1 mg/dL (9.0-27.0); Calcium 9.9 mg/dL (8.7-10.3); Carbon Dioxide 21.8 mmol/L (21.6-31.8); Chloride 102 mmol/L (96-109); Globulin 3.4 g/dL (1.6-3.3); Glucose 94 mg/dL (70-110); Potassium 4.5 mmol/L (3.5-5.5); Sodium 136 mmol/L (135-145); Total Bilirubin 0.5 mg/dL (0.3-1.2); Total Protein 7.5 g/dL (6.2-8.2)
[2023-12-02 16:12] LABS: Basophils # (A) 0.07 X 10*3/uL (0.00-0.10); Basophils % (A) 0.7 %; Eosinophils # (A) 0.21 X 10*3/uL (0.04-0.35); Eosinophils % (A) 2.1 %; HCT 42.8 % (39.6-50.0); HGB 14.1 g/dL (13.0-17.0); Lymphocytes # (A) 2.87 X 10*3/uL (0.90-5.00); Lymphocytes % (A) 28.8 %; MCH 32.2 pg (27.0-32.0); MCHC 32.9 g/dL (32.0-37.0); MCV 97.7 FL (80.0-97.0); Mean Platelet Volume 9.3 FL (9.5-12.2); Monocytes # (A) 0.95 X 10*3/uL (0.20-1.00); Monocytes % (A) 9.5 %; NRBC Per 100 WBC 0 X 10*3/uL (0.00-0.01); Neutrophils # (A) 5.83 X 10*3/uL (1.80-7.70); Neutrophils % (A) 58.5 %; Platelet Count 324 X 10*3/uL (140-440); RBC 4.38 X 10*6/uL (4.40-5.60); WBC 9.97 X 10*3/uL (4.50-10.00)
== END | disposition home or self-care (01) ==
LOC: LABWHC1 10:13
PROVIDERS: ATTEND Family Medicine
DX: N17.9 Acute kidney failure, unspecified (principal); D72.829 Elevated white blood cell count, unspecified
CPT/HCPCS: 36415; 80053; 85025

== ENCOUNTER → 2024-02-14 | Outpatient (CLI) | payer MEDICARE | END | disposition home or self-care (01) | LOC: LABWHC1 10:24 | PROVIDERS: ATTEND Nurse Practitioner Family | DX: M10.9 Gout, unspecified (principal) | CPT/HCPCS: 36415; 84550 ==

== ENCOUNTER → 2024-02-15 | Outpatient (CLI) | payer MEDICARE ==
[2024-02-15 14:22] LABS: Basophils # (A) 0.09 X 10*3/uL (0.00-0.10); Basophils % (A) 0.8 %; Eosinophils # (A) 0.26 X 10*3/uL (0.04-0.35); Eosinophils % (A) 2.4 %; HCT 37.7 % (39.6-50.0); HGB 12.2 g/dL (13.0-17.0); Lymphocytes # (A) 3.67 X 10*3/uL (0.90-5.00); Lymphocytes % (A) 34.1 %; MCH 32.5 pg (27.0-32.0); MCHC 32.4 g/dL (32.0-37.0); MCV 100.5 FL (80.0-97.0); Mean Platelet Volume 9.5 FL (9.5-12.2); Monocytes # (A) 0.93 X 10*3/uL (0.20-1.00); Monocytes % (A) 8.6 %; NRBC Per 100 WBC 0 X 10*3/uL (0.00-0.01); Neutrophils # (A) 5.79 X 10*3/uL (1.80-7.70); Neutrophils % (A) 53.8 %; Platelet Count 273 X 10*3/uL (140-440); RBC 3.75 X 10*6/uL (4.40-5.60); RDW 13.2 % (11.5-14.5); WBC 10.77 X 10*3/uL (4.50-10.00)
[2024-02-15 14:46] LABS: ALT 19 U/L (10-49); AST 28 U/L (14-35); Albumin 4.5 g/dL (3.8-4.9); Alkaline Phosphatase 92 U/L (41-126); BUN/Creat Ratio 13.18 Ratio (12.00-20.00); Blood Urea Nitrogen 14.5 mg/dL (9.0-27.0); Calcium 10.1 mg/dL (8.7-10.3); Carbon Dioxide 21.5 mmol/L (21.6-31.8); Chloride 104 mmol/L (96-109); Chol/HDL Ratio 4.72 Ratio; Glucose 95 mg/dL (70-110); LDL Cholesterol,Calculated 155.9 mg/dL (0.0-131.0); Sodium 141 mmol/L (135-145); Total Bilirubin 0.7 mg/dL (0.3-1.2); Total Protein 7.5 g/dL (6.2-8.2)
== END | disposition home or self-care (01) ==
LOC: LABWHC1 09:44
PROVIDERS: ATTEND Family Medicine
DX: E78.5 Hyperlipidemia, unspecified (principal)
CPT/HCPCS: 36415; 80053; 80061; 84443; 85025

== ENCOUNTER → 2024-05-09 | Outpatient (CLI) | payer MEDICARE ==
[2024-05-09 15:06] LABS: Basophils % (A) 0.9 %; Eosinophils % (A) 2.7 %; HCT 42.9 % (39.6-50.0); HGB 14.4 g/dL (13.0-17.0); Lymphocytes % (A) 25.8 %; MCH 33.6 pg (27.0-32.0); MCHC 33.6 g/dL (32.0-37.0); MCV 100.2 FL (80.0-97.0); Mean Platelet Volume 9.2 FL (9.5-12.2); Monocytes % (A) 8.4 %; NRBC Per 100 WBC 0 X 10*3/uL (0.00-0.01); Neutrophils # (A) 6.71 X 10*3/uL (1.80-7.70); Neutrophils % (A) 61.9 %; Platelet Count 260 X 10*3/uL (140-440); RBC 4.28 X 10*6/uL (4.40-5.60); RDW 12.8 % (11.5-14.5); WBC 10.84 X 10*3/uL (4.50-10.00)
[2024-05-09 15:07] LABS: Eosinophils # (A) 0.29 X 10*3/uL (0.04-0.35); Monocytes # (A) 0.91 X 10*3/uL (0.20-1.00)
[2024-05-09 16:05] LABS: % Iron Saturation 25.08 (15.00-50.00); ALT 24 U/L (10-49); AST 27 U/L (14-35); Albumin 4.3 g/dL (3.8-4.9); Albumin/Globulin Ratio 1.48 Ratio (1.60-3.17); Alkaline Phosphatase 103 U/L (41-126); Blood Urea Nitrogen 12.6 mg/dL (9.0-27.0); Calcium 9.8 mg/dL (8.7-10.3); Chloride 105 mmol/L (96-109); Ferritin 81.5 ng/mL (22.0-322.0); Globulin 2.9 g/dL (1.6-3.3); Glucose 88 mg/dL (70-110); Iron 78 UG/DL (65-175); Potassium 4.1 mmol/L (3.5-5.5); Sodium 141 mmol/L (135-145); Total Bilirubin 0.4 mg/dL (0.3-1.2); Total Iron Binding Capacity 311 UG/DL (228-460); Total Protein 7.2 g/dL (6.2-8.2)
== END | disposition home or self-care (01) ==
LOC: LABWHC1 10:33
PROVIDERS: ATTEND Family Medicine
DX: D64.9 Anemia, unspecified (principal); Z12.5 Encounter for screening for malignant neoplasm of prostate
CPT/HCPCS: 36415; 80053; 82728; 83540; 83550; 85025

== ENCOUNTER → 2024-11-10 | Outpatient (CLI) | payer MEDICARE ==
[2024-11-10 14:50] LABS: HGB 15.5 g/dL (13.0-17.0); MCH 33.6 pg (27.0-32.0); MCHC 33.7 g/dL (32.0-37.0); MCV 99.8 FL (80.0-97.0); Mean Platelet Volume 9.4 FL (9.5-12.2); NRBC Per 100 WBC 0 X 10*3/uL (0.00-0.01); Platelet Count 335 X 10*3/uL (140-440); RBC 4.61 X 10*6/uL (4.40-5.60); RDW 12.5 % (11.5-14.5); WBC 10.99 X 10*3/uL (4.50-10.00)
[2024-11-10 14:51] LABS: Basophils % (A) 0.9 %; Eosinophils # (A) 0.38 X 10*3/uL (0.04-0.35); Eosinophils % (A) 3.5 %; Lymphocytes # (A) 2.53 X 10*3/uL (0.90-5.00); Monocytes # (A) 0.92 X 10*3/uL (0.20-1.00); Monocytes % (A) 8.4 %; Neutrophils % (A) 63.7 %
[2024-11-10 15:15] LABS: ALT 22 U/L (10-49); AST 35 U/L (14-35); Albumin/Globulin Ratio 1.05 Ratio (1.60-3.17); Alkaline Phosphatase 98 U/L (41-126); BUN/Creat Ratio 11.92 Ratio (12.00-20.00); Blood Urea Nitrogen 14.3 mg/dL (9.0-27.0); Carbon Dioxide 19.8 mmol/L (21.6-31.8); Chloride 106 mmol/L (96-109); Chol/HDL Ratio 3.99 Ratio; Globulin 3.8 g/dL (1.6-3.3); Glucose 96 mg/dL (70-110); LDL Cholesterol,Calculated 114.5 mg/dL (0.0-131.0); Potassium 4.2 mmol/L (3.5-5.5); Sodium 141 mmol/L (135-145); Total Bilirubin 0.5 mg/dL (0.3-1.2); Total Protein 7.8 g/dL (6.2-8.2); VLDL Calculation 17.36 mg/dL (5.00-40.00)
== END | disposition home or self-care (01) ==
LOC: LABWHC1 11:05
PROVIDERS: ATTEND Nurse Practitioner Family
DX: Z12.5 Encounter for screening for malignant neoplasm of prostate (principal); E78.5 Hyperlipidemia, unspecified; R79.9 Abnormal finding of blood chemistry, unspecified
CPT/HCPCS: 36415; 80053; 80061; 83036; 84153; 84443; 85025